=== PATIENT | female | born 1985 | race Caucasian/White ===

== ENCOUNTER 2016-12-09 15:34 | Emergency (ER) | payer MEDICAID, OTHER ==
[~2016-12-09] VITALS: Ht 160 cm; Wt 112.0 kg
[~2016-12-09 15:34] MED LIST: PREN-39 PO
[2016-12-09 15:43] VITALS: Ht 160 cm; Wt 112.0 kg
[2016-12-09] MEDS ORDERED: HYDROCODONE/APAP (10/325) TAB PO ONE (17:30)
[2016-12-09] MEDS ORDERED: METOCLOPRAMIDE 10 MG TAB PO ONE (17:30)
[2016-12-09] MEDS ORDERED: DIPHENHYDRAMINE 25 MG CAP PO ONE (17:30)
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
[2016-12-09] MEDS ORDERED: HYDR-906 PO (17:57)
[2016-12-09 18:52] VITALS: BP 137/68; PULSE 72; RESP 18; TEMP 97.4
== END 2016-12-09 18:53 | disposition home or self-care (01) ==
LOC: FTE 15:34
DX: G44.329 Chronic post-traumatic headache, not intractable (principal)
CPT/HCPCS: Z7502; Z7610; 99283

== ENCOUNTER 2017-02-17 12:00 | Emergency (ER) | payer OTHER ==
[~2017-02-17] VITALS: Wt 109.5 kg
[~2017-02-17 12:00] MED LIST changes: +HYDR-906 PO
[2017-02-17] MEDS ORDERED: KETOROLAC 30 MG INJ IV STA (14:33)
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
[2017-02-17] MEDS ORDERED: METOCLOPRAMIDE 10 MG INJ IV ONE (15:00)
[2017-02-17] MEDS ORDERED: DIPHENHYDRAMINE 50 MG INJ IV ONE (15:00)
[2017-02-17 17:06] VITALS: BP 112/65; PULSE 93
== END 2017-02-17 17:07 | disposition home or self-care (01) ==
LOC: FTE 12:00
DX: R51 Headache (principal)
CPT/HCPCS: 96374; 96375; J1200; J1885; J2765; Z7502